=== PATIENT | female | born 1995 | race Caucasian/White ===

== ENCOUNTER → 2018-07-23 | Outpatient (CLI) | payer OTHER ==
--- NOTE | ~2018-07-23 | EKG ---
[address] [address] [place] [address] ELECTROCARDIOGRAM REPORT Name: NAUNMANI Enriuqez Room #: [facility]#: [id number] Admission: 07/23/18 Attend Phys: Ela Cardenas MD Discharge: Date of : [birth year] Report #: [id number] THIS REPORT FOR: //name// [facility] Test Date: 2018-07-23 Test Time: 15:33:46 Pat Name: MANI MAGALLON Department: Room: Gender: F [employer]el [employer]om Operator: Chandni VILLANUEVA : 1995 Requested By: Ela Cardenas Order Number: [id number] MD: Carlos Beltran Measurements Intervals [place] Rate: 84 P: 43 [place]: 124 QRS: -26 QRSD: 84 T: 31 QT: 340 QTc: 402 Interpretive Statements Sinus rhythm Borderline left axis deviation Low voltage, precordial leads No previous ECG available for comparison Electronically Signed On 07-23-2018 16:54:38 HRIS ANALYST by Carlos Beltran [email or web address] <ELECTRONICALLY SIGNED> By: Carlos Beltran MD, [facility] 07/23/18 1654 [id number] 32 Carlos Beltran MD, FACC /EPI
== END ==
LOC: CV 15:02
DX: R07.9 Chest pain, unspecified (principal)